=== PATIENT | female | born 1980 | race Caucasian/White ===

== ENCOUNTER → 2024-10-19 | Outpatient (CLI) | payer BC, OTHER ==
[~2024-10-19] MED LIST: LOSA50 PO
[2024-10-20 16:25] LABS: HIV 1,2 COMBO ANTIGEN/ANTIBODY Negative (Negative)
[2024-10-21 12:20] LABS: HCV QNT BY NAAT (IU/ML) Not Detected; HCV QNT BY NAAT (LOG IU/ML) Not Detected; HCV QNT BY NAAT INTERP Not Detected (Not Detected)
== END ==
LOC: LAB SHORT 12:18 → LAB 12:18
PROVIDERS: Chiropractor
DX: Z20.9 Contact with and (suspected) exposure to unspecified communicable disease (principal)
CPT/HCPCS: 87389; 87522